=== PATIENT | female | born 1970 | race Caucasian/White ===

== ENCOUNTER 2019-09-22 21:58 | Emergency (ER) | payer OTHER, SELFPAY ==
--- NOTE | 2019-09-22 23:07 | RAD ---
RIGHT WRIST THREE VIEWS: Date: 09-22-2019 FINDINGS: No fracture was seen. The carpal bones and relationship appeared normal at this time. The distal radi us and ulna appeared intact. If pain persists, delayed follow up films (possibly a scaphoid view) dolly ht be needed. Currently there are no areas that are suspicious for fracture. IMPRESSION: No acute findings. POS: HOME
== END 2019-09-22 22:48 | disposition home or self-care (01) ==
LOC: BURERS 21:58
DX: S63.501A Unspecified sprain of right wrist, initial encounter (principal); I11.0 Hypertensive heart disease with heart failure; I50.9 Heart failure, unspecified; I25.2 Old myocardial infarction; E78.5 Hyperlipidemia, unspecified; F17.210 Nicotine dependence, cigarettes, uncomplicated; W01.0XXA Fall on same level from slipping, tripping and stumbling without subsequent striking against object, initial encounter